=== PATIENT | female | born 1995 | race Caucasian/White ===

== ENCOUNTER 2022-07-24 21:35 | Outpatient (CLI) | payer OTHER ==
[~2022-07-24] VITALS: Ht 162.6 cm; Wt 88.0 kg
[2022-07-24] MEDS ORDERED: ACET325C5 PO (21:55)
[2022-07-24] MEDS ORDERED: PRENTAB9 PO (21:55)
[2022-07-24 21:58] VITALS: BP 119/78
[2022-07-24] MEDS ORDERED: HOME MED LIST COMPLETE! XX SCH (22:00)
[2022-07-24] MEDS ORDERED: FLUCONAZOLE 50MG TABLET PO ONE (23:10)
[2022-07-24 23:57] LABS: ALBUMIN 2.8 G/DL (3.2-5.2); ALKALINE PHOSPHATASE 94 U/L (46-116); ALT/SGPT < 9 U/L (7.0-40); AST/SGOT 17 U/L (<34); BILIRUBIN,TOTAL 0.4 MG/DL (0.3-1.2); BLOOD UREA NITROGEN < 5 MG/DL (9-23); CARBON DIOXIDE LEVEL 24 MMOL/L (20-31); CHLORIDE LEVEL 104 MMOL/L (98-107); CREATININE FOR GFR 0.48 MG/DL (0.55-1.30); GLOMERULAR FILTRATION RATE > 60.0 (>60); GLUCOSE, FASTING 83 MG/DL (60-100); POTASSIUM SERUM 4.1 MMOL/L (3.5-5.1); SODIUM LEVEL 137 MMOL/L (136-145); TOTAL PROTEIN 6.3 G/DL (5.7-8.2)
[2022-07-25] MEDS ORDERED: FAMOTIDINE 20 MG TAB PO ONE (00:15)
[2022-07-25] MEDS ORDERED: GI COCKTAIL 50ML BTL(HYOSCYAMINE/MAALOX/LIDOCAINE VISCOUS)(1:3:1) PO ONE (00:15)
[2022-07-25 00:27] LABS: HEMOGLOBIN 12.1 g/dl (12.0-15.5); MEAN CORPUSCULAR HEMOGLOBIN 30.3 pg (27.0-33.0); MEAN CORPUSCULAR HGB CONC 32.7 g/dl (32.0-36.5); MEAN CORPUSCULAR VOLUME 92.5 fl (80.0-96.0); PLATELET COUNT, AUTOMATED 476 10^3/uL (150-450); WHITE BLOOD COUNT 9.6 10^3/uL (4.0-10.0)
[2022-07-25 00:33] VITALS: BP 123/85
[2022-07-25 01:10] LABS: GC DNA AMPLIFICATION NEGATIVE (NEGATIVE)
== END 2022-07-25 01:14 | disposition home or self-care (01) ==
LOC: M LDO 21:35
PROVIDERS: ATTEND Obstetrics & Gynecology
DX: O23.593 Infection of other part of genital tract in pregnancy, third trimester (principal); B37.9 Candidiasis, unspecified; O99.820 Streptococcus B carrier state complicating pregnancy; O10.013 Pre-existing essential hypertension complicating pregnancy, third trimester; O21.8 Other vomiting complicating pregnancy; O26.03 Excessive weight gain in pregnancy, third trimester; O99.113 Other diseases of the blood and blood-forming organs and certain disorders involving the immune mechanism complicating pregnancy, third trimester; D75.839 Thrombocytosis, unspecified; O99.513 Diseases of the respiratory system complicating pregnancy, third trimester; J45.909 Unspecified asthma, uncomplicated; O26.893 Other specified pregnancy related conditions, third trimester; M41.9 Scoliosis, unspecified; Z3A.31 31 weeks gestation of pregnancy; Z91.018 Allergy to other foods
CPT/HCPCS: 36415; 59025; 76811; 76815; 76817; 76820; 80053; 81001; 85027; 87081; 87661; 87810; 87850; 93970; G0463

== ENCOUNTER 2022-08-26 11:03 | Outpatient (CLI) | payer OTHER ==
[~2022-08-26] VITALS: Ht 162.6 cm; Wt 86.6 kg
[~2022-08-26 11:03] MED LIST: ACET325C5 PO; PRENTAB9 PO
[2022-08-26 11:25] VITALS: BP 137/82
[2022-08-26] MEDS ORDERED: HOME MED LIST COMPLETE! XX SCH (11:35)
[2022-08-26] MEDS ORDERED: ASPI81CH33 PO (12:01)
== END 2022-08-26 12:05 | disposition home or self-care (01) ==
LOC: M LDO 11:03
PROVIDERS: ATTEND Advanced Practice Midwife
DX: O26.893 Other specified pregnancy related conditions, third trimester (principal); Z3A.34 34 weeks gestation of pregnancy; M54.9 Dorsalgia, unspecified; R10.2 Pelvic and perineal pain; O10.013 Pre-existing essential hypertension complicating pregnancy, third trimester; Z91.018 Allergy to other foods
CPT/HCPCS: 59025; G0463

== ENCOUNTER 2022-09-12 22:33 | Outpatient (CLI) | payer OTHER ==
[~2022-09-12] VITALS: Ht 162.6 cm; Wt 86.0 kg
[~2022-09-12 22:33] MED LIST changes: +ASPI81CH33 PO
[2022-09-12 22:59] VITALS: BP 128/84
== END 2022-09-12 23:50 | disposition home or self-care (01) ==
LOC: M LDO 22:33
PROVIDERS: ATTEND Obstetrics & Gynecology
DX: O9A.213 Injury, poisoning and certain other consequences of external causes complicating pregnancy, third trimester (principal); O24.410 Gestational diabetes mellitus in pregnancy, diet controlled; Z3A.36 36 weeks gestation of pregnancy; W54.1XXA Struck by dog, initial encounter; Y92.9 Unspecified place or not applicable; R10.2 Pelvic and perineal pain; Z79.82 Long term (current) use of aspirin; Z91.018 Allergy to other foods
CPT/HCPCS: 59025; 76815; G0463

== ENCOUNTER 2022-09-20 15:43 | Inpatient (IN) | payer OTHER ==
[~2022-09-20] VITALS: Ht 162.6 cm; Wt 86.0 kg
[2022-09-20 16:09] VITALS: BP 120/79
[2022-09-20] MEDS ORDERED: HOME MED LIST COMPLETE! XX SCH (16:10)
[2022-09-20 16:37] LABS: HEMATOCRIT 37.9 % (36.0-47.0); HEMOGLOBIN 12.4 g/dl (12.0-15.5); MEAN CORPUSCULAR HEMOGLOBIN 28.9 pg (27.0-33.0); MEAN CORPUSCULAR HGB CONC 32.7 g/dl (32.0-36.5); MEAN CORPUSCULAR VOLUME 88.3 fl (80.0-96.0); PLATELET COUNT, AUTOMATED 408 10^3/uL (150-450); RED BLOOD COUNT 4.29 10^6/uL (4.00-5.40); WHITE BLOOD COUNT 7.4 10^3/uL (4.0-10.0)
[2022-09-20 17:34] LABS: HEPATITIS B SURFACE ANTIGEN NEGATIVE (NEGATIVE)
[2022-09-20 17:54] VITALS: BP 126/88
[2022-09-20] MEDS ORDERED: TRANEXAMIC ACID INJection 1,000 MG in NS 100 ML IV PRN (17:55)
[2022-09-20] MEDS ORDERED: METHYLERGONOVINE MALEATE 0.2MG/ML 1ML VIAL IM PRN (17:55)
[2022-09-20] MEDS ORDERED: LIDOCAINE 1% MDV 20ML VIAL INFIL PRN (17:55)
[2022-09-20] MEDS ORDERED: OXYTOCIN DRIP 30 UNITS in IV 1 EA IV PRN ×4 (17:55)
[2022-09-20] MEDS ORDERED: miSOPROStol 25MCG 1/4 TABLET PO SCH (18:15)
[2022-09-20] MEDS ORDERED: PROMETHAZINE 25 MG TAB PO PRN (18:20)
[2022-09-20] MEDS: LR 1,000 ML IV SCH (18:22)
[2022-09-20] MEDS: ONDANSETRON 4MG 2ML VIAL IV PRN (18:26)
[2022-09-20] MEDS ORDERED: NALBUPHINE HCL 10 MG/ML 1ML AMP IV PRN (18:50)
[2022-09-20] MEDS ORDERED: PENICILLIN G POTASSIUM 5 MU IV 5 MU in D5W MINI-BAG PLUS 100 ML IV STA (21:50)
[2022-09-20] MEDS ORDERED: FENTANYL/ROPIVACAINE/NACL BAG 100 ML EPIDURAL SCH (22:05)
[2022-09-20] MEDS ORDERED: ePHEDrine SULFATE 25 MG/5 ML(5MG/ML) SYRINGE IVP PRN (22:05)
[2022-09-20] MEDS ORDERED: LR 500 ML IV PRN (22:05)
[2022-09-20] MEDS ORDERED: EPIDURAL/PCA KEYS XX PRN (22:05)
[2022-09-20] MEDS ORDERED: NALOXONE INJ 0.4MG/1ML VIAL IV PRN (22:05)
[2022-09-20] MEDS ORDERED: diphenhydrAMINE 50MG/ML VIAL IV PRN (22:05)
[2022-09-20] MEDS ORDERED: ONDANSETRON 4MG 2ML VIAL IV PRN (22:05)
[2022-09-20] MEDS ORDERED: CALCIUM CARBONATE 500 MG CHEW U/D PO ONE (23:45)
[2022-09-21] VITALS (9 sets, daily range): BP systolic 117–138; BP diastolic 68–84; O2SAT 97
[2022-09-21] MEDS: ONDANSETRON 4MG 2ML VIAL IV PRN (02:34)
[2022-09-21] MEDS: LR 1,000 ML IV SCH ×3 (02:38→14:45)
[2022-09-21] MEDS ORDERED: PEN G POT 3,000,000 UNIT/50 ML 3,000,000 UNIT in IV 1 EA IV SCH (03:00)
[2022-09-21] MEDS: IBUPROFEN 800 MG TAB PO SCH ×3 (06:00→22:18)
[2022-09-21] MEDS ORDERED: DIBUCAINE 1% OINTMENT 30GM TOP PRN (06:45)
[2022-09-21] MEDS ORDERED: DOCUSATE SODIUM 100MG CAPSULE PO PRN (06:45)
[2022-09-21] MEDS ORDERED: OXYTOCIN DRIP 30 UNITS in IV 1 EA IV SCH (06:45)
[2022-09-21] MEDS ORDERED: RHOGAM 300MCG (1500IU) INJ IM SCH (06:45)
[2022-09-21] MEDS ORDERED: METHYLERGONOVINE MALEATE 0.2MG/ML 1ML VIAL IM PRN (06:45)
[2022-09-21] MEDS: ACETAMINOPHEN 500 MG TAB PO SCH ×3 (06:45→18:45)
[2022-09-21 06:59] LABS: CORD GAS ABE V -0.8; CORD GAS HCO3 V 22.1 MMOL/L; CORD GAS O2 SAT V 87.1 %; CORD GAS PCO2 V 32.7 mmHg; CORD GAS PH V 7.448 UNITS; CORD GAS PO2 V 38.3 mmHg; CORD GAS SBC V 23.5 MMOL/L; CORD GAS TCO2 V 23.1 MMOL/L
[2022-09-21] MEDS ORDERED: PRENATAL VITAMINS CHEWABLE TABLET PO SCH (09:00)
[2022-09-21] MEDS: PRENATAL VITAMINS CHEWABLE TABLET PO SCH (09:00)
[2022-09-21] MEDS ORDERED: MOM 30ML SUSPENSION UDC PO PRN (19:00)
[2022-09-22] MEDS: ACETAMINOPHEN 500 MG TAB PO SCH (01:20)
[2022-09-22] MEDS: IBUPROFEN 800 MG TAB PO SCH (05:51)
[2022-09-22 06:00] VITALS: BP 124/82; O2SAT 97
[2022-09-22 07:32] LABS: HEMATOCRIT 31.1 % (36.0-47.0); MEAN CORPUSCULAR HEMOGLOBIN 29.4 pg (27.0-33.0); MEAN CORPUSCULAR HGB CONC 32.5 g/dl (32.0-36.5); MEAN CORPUSCULAR VOLUME 90.7 fl (80.0-96.0); PLATELET COUNT, AUTOMATED 354 10^3/uL (150-450); RED BLOOD COUNT 3.43 10^6/uL (4.00-5.40); WHITE BLOOD COUNT 9.9 10^3/uL (4.0-10.0)
[2022-09-22 07:33] LABS: HEMOGLOBIN 10.1 g/dl (12.0-15.5)
[2022-09-22] MEDS ORDERED: MEASLES,MUMPS,RUBELLA VACCINE INJ (MMR-II) SC.IMMUN ONE (09:05)
[2022-09-22] MEDS ORDERED: BOOSTRIX VACCINE (TETANUS/DIPHTH/ACEL. PERTUSSIS) 0.5ML SYR IM.IMMUN ONE (09:05)
[2022-09-22] MEDS: PRENATAL VITAMINS CHEWABLE TABLET PO SCH (09:29)
[2022-09-23] MEDS ORDERED: BOOSTRIX VACCINE (TETANUS/DIPHTH/ACEL. PERTUSSIS) 0.5ML SYR IM.IMMUN ONE (09:00)
[2022-09-23] MEDS ORDERED: MEASLES,MUMPS,RUBELLA VACCINE INJ (MMR-II) SC.IMMUN ONE (09:00)
== END 2022-09-22 10:40 | disposition home or self-care (01) | DRG 806 ==
LOC: M LDI 15:43 → M OBS 09-21 08:54
PROVIDERS: ADMIT Advanced Practice Midwife; ATTEND Advanced Practice Midwife
PROC: 3E033VJ Introduction of Other Hormone into Peripheral Vein, Percutaneous Approach (ICD-10-PCS; 2022-09-20)
PROC: 10E0XZZ Delivery of Products of Conception, External Approach (ICD-10-PCS; principal; 2022-09-21)
DX: O10.92 Unspecified pre-existing hypertension complicating childbirth (principal); Z37.0 Single live birth; O99.12 Other diseases of the blood and blood-forming organs and certain disorders involving the immune mechanism complicating childbirth; Z3A.38 38 weeks gestation of pregnancy; Z91.010 Allergy to peanuts; Z91.040 Latex allergy status; D75.839 Thrombocytosis, unspecified

== ENCOUNTER 2023-08-15 19:24 | Outpatient (CLI) | payer OTHER ==
[2023-08-15 20:00] VITALS: BP 117/70
[2023-08-15 21:25] LABS: HEMATOCRIT 38.6 % (36.0-47.0); HEMOGLOBIN 12.6 g/dl (12.0-15.5); MEAN CORPUSCULAR HGB CONC 32.6 g/dl (32.0-36.5); MEAN CORPUSCULAR VOLUME 88.9 fl (80.0-96.0); PLATELET COUNT, AUTOMATED 459 10^3/uL (150-450); RED BLOOD COUNT 4.34 10^6/uL (4.00-5.40); WHITE BLOOD COUNT 6.8 10^3/uL (4.0-10.0)
[2023-08-15 21:52] LABS: LIPASE 39 U/L (12-53)
[2023-08-15 21:53] LABS: AMYLASE 76 U/L (30-118)
[2023-08-15 21:54] LABS: ALBUMIN 2.5 G/DL (3.2-5.2); ALKALINE PHOSPHATASE 210 U/L (46-116); ALT/SGPT 31 U/L (7.0-40); AST/SGOT 92 U/L (<34); BILIRUBIN,TOTAL 1.2 MG/DL (0.3-1.2); BLOOD UREA NITROGEN 6 MG/DL (9-23); CALCIUM LEVEL 9.1 MG/DL (8.5-10.1); CARBON DIOXIDE LEVEL 24 MMOL/L (20-31); CHLORIDE LEVEL 106 MMOL/L (98-107); CREATININE FOR GFR 0.44 MG/DL (0.55-1.30); GLOMERULAR FILTRATION RATE > 60.0 (>60); GLUCOSE, FASTING 106 MG/DL (60-100); POTASSIUM SERUM 4.5 MMOL/L (3.5-5.1); SODIUM LEVEL 137 MMOL/L (136-145); TOTAL PROTEIN 6.5 G/DL (5.7-8.2)
== END 2023-08-15 23:11 | disposition home or self-care (01) ==
LOC: M LDO 19:24
PROVIDERS: ATTEND Advanced Practice Midwife
DX: O99.613 Diseases of the digestive system complicating pregnancy, third trimester (principal); K80.20 Calculus of gallbladder without cholecystitis without obstruction; Z3A.31 31 weeks gestation of pregnancy
CPT/HCPCS: 36415; 59025; 76705; 80053; 82150; 83690; 85027; G0463

== ENCOUNTER 2023-09-10 16:01 | Outpatient (CLI) | payer OTHER ==
[~2023-09-10] VITALS: Ht 162.6 cm; Wt 85.3 kg
[2023-09-10 16:24] VITALS: BP 141/84
[2023-09-10] MEDS ORDERED: HOME MED LIST COMPLETE! XX SCH (16:35)
[2023-09-10 16:52] VITALS: BP 136/95
[2023-09-10 17:24] VITALS: BP 118/83
[2023-09-10 17:50] LABS: CREATININE,RANDOM URINE 52.1 MG/DL
[2023-09-10 17:56] VITALS: BP 137/85
[2023-09-10 18:05] LABS: MEAN CORPUSCULAR HEMOGLOBIN 28.8 pg (27.0-33.0); MEAN CORPUSCULAR HGB CONC 33.3 g/dl (32.0-36.5); MEAN CORPUSCULAR VOLUME 86.5 fl (80.0-96.0); PLATELET COUNT, AUTOMATED 405 10^3/uL (150-450); RED BLOOD COUNT 4.16 10^6/uL (4.00-5.40); WHITE BLOOD COUNT 7.3 10^3/uL (4.0-10.0)
[2023-09-10 18:26] VITALS: BP 142/81
[2023-09-10 18:29] LABS: URIC ACID 4.4 MG/DL (3.1-7.8)
[2023-09-10 18:31] LABS: LDH LACTATE DEHYDROGENASE 161 U/L (120-246)
[2023-09-10 18:32] LABS: ALT/SGPT 12 U/L (7.0-40); AST/SGOT 12 U/L (<34); BILIRUBIN,TOTAL 0.5 MG/DL (0.3-1.2); CREATININE FOR GFR 0.42 MG/DL (0.55-1.30); GLOMERULAR FILTRATION RATE > 60.0 (>60)
== END 2023-09-10 19:06 | disposition home or self-care (01) ==
LOC: M LDO 16:01
PROVIDERS: ATTEND Advanced Practice Midwife
DX: O47.03 False labor before 37 completed weeks of gestation, third trimester (principal); O99.810 Abnormal glucose complicating pregnancy; O13.3 Gestational [pregnancy-induced] hypertension without significant proteinuria, third trimester; Z3A.34 34 weeks gestation of pregnancy
CPT/HCPCS: 36415; 59025; 82247; 82570; 83615; 84156; 84450; 84460; 84550; 85027; G0463

== ENCOUNTER → 2023-09-19 | Outpatient (REF) | payer OTHER | LOC: M SFHCWAGY 12:09 | PROVIDERS: ATTEND Specialist | DX: Z34.83 Encounter for supervision of other normal pregnancy, third trimester (principal); Z36.89 Encounter for other specified antenatal screening; Z3A.00 Weeks of gestation of pregnancy not specified ==